=== PATIENT | female | born 1975 ===

== ENCOUNTER 2018-03-23 23:51 | Emergency (ER) | payer SELFPAY ==
[2018-03-24 00:33] VITALS: BP 126/82; PULSE 72; RESP 17; TEMP 98.7; O2SAT 98
[2018-03-24] MEDS ORDERED: Tdap Vaccine 0.5 ml Vial (10-64 yrs) IM ONE ×2 (00:38→01:59)
[2018-03-24] MEDS ORDERED: Lidocaine 1% (10 ml) Inj INFIL ONE (00:52)
[2018-03-24] MEDS ORDERED: Lidocaine 1% Inj (20ml) ONE (00:55)
--- NOTE | 2018-03-24 01:18 | ED PDOC ---
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 Patient reports that approximately one hour prior to arrival she was opening a wine bottle and accidentally broke it, subsequently cutting her left hand. She is unsure if there is a foreign body in the laceration. Tetanus status unknown PMD: none provided Past Medical History Reviewed: Historical Data, Nursing Documentation, Vital Signs Vital Signs: Last Vital Signs Temp 98.7 F 03/24/18 00:12 Pulse 72 03/24/18 00:12 Resp 17 03/24/18 00:12 BP 126/82 03/24/18 00:12 Pulse Ox 98 03/24/18 00:12 - Medical History PMH: No Chronic Diseases - Surgical History Surgical History: No Surg Hx - Family History Family History: States: Unknown Family Hx - Immunization History Hx Tetanus Toxoid Vaccination: No (will update this visit) - Allergies Allergies/Adverse Reactions: Allergies Allergy/AdvReac Type Severity Reaction Status Date / Time No Known Allergies Allergy Verified 03/24/18 00:33 Review of Systems ROS Statement: Except As Marked, All Systems Reviewed And Found Negative Skin: Positive for: Other (laceration to left hand, possible foriegn body) Physical Exam - Reviewed Nursing Documentation Reviewed: Yes Vital Signs Reviewed: Yes - Physical Exam Appears: Positive for: No Acute Distress Head Exam: Positive for: ATRAUMATIC, NORMOCEPHALIC Skin: Positive for: Normal Color Respiratory: Negative for: Respiratory Distress Pulses-Radial (L): 2+ Pulses-Radial (R): 2+ Extremity: Positive for: Normal ROM (full ROM actively of left second digit), Other (Left hand 2nd mcp joint on palmar surface 0.5cm superficial V-shaped laceration, no active bleeding) - ECG O2 Sat by Pulse Oximetry: 98 (RA) Pulse Ox Interpretation: Normal - Radiology X-Ray: Interpreted by Me (L hand x-ray) X-Ray Interpretation: No Acute Disease Medical Decision Making Medical Decision Making: Time: 37 Initial Impression: left hand laceration, possible foreign body Initial Plan: --Tetanus booster --Lido 3ml INJ --Left hand XR Scribe Attestation: Documented by Monica Sal, acting as a scribe for Johnnie Tamez PA-C. Provider Scribe Attestation: All medical record entries made by the Scribe were at my direction and personally dictated by me. I have reviewed the chart and agree that the record accurately reflects my personal performance of the history, physical exam, medical decision making, and the department course for this patient. I have also personally directed, reviewed, and agree with the discharge instructions and disposition. Procedures - Time-Out Type of Procedure: Laceration repair Site of Procedure: L hand Correct Patient: Yes Correct Procedure: Yes Correct Site Marked: Yes X-Ray Marked: Yes PA/Tech: Dashawn KING - Laceration/Wound Repair laceration repair Wound Length (cm): 0.5 Wound's Depth, Shape: superficial Wound Explored: clean Irrigated w/ Saline (ccs): 250 Betadine Prep?: Yes Anesthesia: 1% Lidocaine Volume Anesthetic (ccs): 2 Wound Repaired With: Sutures Suture Size/Type: 5:0, proline Number of Sutures: 3 Wound Complexity: Simple Sterile Dressing Applied?: Yes Disposition - Clinical Impression Clinical Impression: Hand laceration - Patient ED Disposition Is Patient to be Admitted: No - Disposition Referrals: [facility] [Outside] Disposition: Routine/Home Disposition Time: 01:43 Condition: STABLE Additional Instructions: SUTURE REMOVAL IN 7-10 DAYS AKBAR MILAN, thank you for letting us take care of you today. Your provider was Ángel Garcia MD and you were treated for LT HAND LACERATION. The emergency medical care you received today was directed at your acute symptoms. If you were prescribed any medication, please fill it and take as directed. It may take several days for your symptoms to resolve. Return to the Emergency Department if your symptoms worsen, do not improve, or if you have any other problems. Please contact your doctor or call one of the physicians/clinics you have been referred to that are listed on the Patient Visit Information form that is included in your discharge packet. Bring any paperwork you were given at discharge with you along with any medications you are taking to your follow up visit. Our treatment cannot replace ongoing medical care by a primary care provider outside of the emergency department. Thank you for allowing the [email or web address] team to be part of your care today. If you had an X-Ray or CT scan: A Radiologist will review the ED reading if any change in treatment is needed we will contact you. If you had a blood, urine, or wound culture: It will take several days for the results, if any change in treatment is needed we will contact you. If you had an STI test: It will take 48 hours for the results. Please call after 1 week if you have not heard back. Instructions: Laceration Repair With Stitches (DC) Forms: [employer] (Thai) Print Language: BURKINAN
--- NOTE | 2018-03-24 13:12 | RAD ---
PROCEDURE: Left Hand Radiographs. HISTORY: possible FB COMPARISON: None. FINDINGS: BONES: Normal. No fracture. JOINTS: Normal. No osteoarthritic changes. SOFT TISSUES: Normal. OTHER FINDINGS: None. IMPRESSION: Normal left hand radiographs.
== END 2018-03-24 02:15 | disposition home or self-care (01) ==
LOC: H.ER 23:51
DX: S61.412A Laceration without foreign body of left hand, initial encounter (principal); W25.XXXA Contact with sharp glass, initial encounter; Y92.89 Other specified places as the place of occurrence of the external cause